=== PATIENT | male | born 1955 | race Caucasian/White ===

== ENCOUNTER → 2018-06-27 | Outpatient (CLI) | payer OTHER | LOC: EMCIMAGING 15:02 | PROVIDERS: ATTEND Orthopaedic Surgery | DX: M16.0 Bilateral primary osteoarthritis of hip (principal); M17.0 Bilateral primary osteoarthritis of knee; M46.96 Unspecified inflammatory spondylopathy, lumbar region; N40.0 Benign prostatic hyperplasia without lower urinary tract symptoms; K57.30 Diverticulosis of large intestine without perforation or abscess without bleeding; M23.41 Loose body in knee, right knee | CPT/HCPCS: 73700-PN ==

== ENCOUNTER 2018-07-04 07:05 | Inpatient (IN) | payer OTHER ==
[~2018-07-04 07:05] MED LIST: ACETAMINOPHEN 325 MG TAB PO ONE; BUPIVACAINE/EPI 0.5% 30 ML SDV ONE; DEXAMETHASONE 4 MG/ML VIAL IVP ONE; FAMOTIDINE 20 MG TAB PO ONE; LR 1,000 ML IV ONE; POVIDONE-IODINE 20 ML in SODIUM CL IRRIG SOLUTION 500 ML IRR ONE; ROPIVACAINE 0.2% 80 MG, EPINEPHrine 0.2 MG, KETOROLAC TROMETHAMINE 30 MG in SYRINGE 0 ML IU ONE; TRANEXAMIC ACID 1,000 MG in NS 100 ML IV ONE; ceFAZolin 2 GM/DEXTROSE 100 ML IV ONE
--- NOTE | 2018-07-04 07:47 | PDHPUP ---
History & Physical Update H&P update statement: This history and physical update is based on an assessment of the patient which was completed after admission or registration (within 24 hours), but prior to the surgery/procedure. H&P update: H&P reviewed & patient examined, no change in patient's condition since H&P completed
[2018-07-04] MEDS ORDERED: MIDAZOLAM 2 MG/2 ML VIAL IVP ONE (07:50)
[2018-07-04] MEDS ORDERED: MIDAZOLAM 2 MG/2 ML VIAL ONE (07:51)
--- NOTE | 2018-07-04 07:52 | PDANEPAE ---
ANE History of Present Illness 62 year old with right hip arthritis ANE Past Medical History - Cardiovascular History Hx Hypertension: Yes Hx Arrhythmias: No Hx Chest Pain: No Hx Coronary Artery / Peripheral Vascular Disease: No Hx CHF / Valvular Disease: No Hx Palpitations: No Cardiovascular History Comment: pcp monitors bp medications - Pulmonary History Hx COPD: No Hx Asthma/Reactive Airway Disease: No Hx Recent Upper Respiratory Infection: No Hx Oxygen in Use at Home: No Hx Sleep Apnea: No Sleep Apnea Screening Result - Last Documented: Positive Pulmonary History Comment: janee triggers - Neurologic History Hx Cerebrovascular Accident: No Hx Seizures: No Hx Dementia: No - Endocrine History Hx Diabetes: No - Renal History Hx Renal Disorders: Yes Renal History Comment: nocturia - Liver History Hx Hepatic Disorders: No - Neurological & Psychiatric Hx Hx Neurological and Psychiatric Disorders: No - Cancer History Hx Cancer: No - Congenital Disorder History Hx Congenital Disorders: No - GI History Hx Gastrointestinal Disorders: No - Other Health History Other Health History: 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 wears glasses - Chronic Pain History Chronic Pain: Yes (right hip pain, bilateral knees) - Surgical History Prior Surgeries: tonsillectomy 1962. knee surgery 1975 and 1982. rhinoplasty 1985. fer 2005. hernia repair 2018 ANE Review of Systems Review of systems is: negative Review of Systems: - Exercise capacity METS (RN): 4 METS ANE Patient History - Allergies Allergies/Adverse Reactions: No Known Allergies Allergy (Verified 07/02/18 15:06) - Home Medications Home Medications: Allopurinol [Allopurinol 300 MG (RX)] 300 mg PO DAILY 06/28/18 [Last Taken 07/04 05:00] Diclofenac Sodium [Voltaren 75 MG (*)] 75 mg PO BID 06/28/18 [Last Taken ] Valacyclovir HCl [Valtrex] 1,000 mg PO DAILY PRN 06/28/18 [Last Taken 07/01/18] amLODIPine BESYLATE/BENAZEPRIL [Lotrel 5/10 mg Cap (*)] 2 each PO DAILY [Last Taken 07/03/18 05:30] - Smoking Hx Smoking Status: Never smoked - Family Anes Hx Family Hx Anesthesia Complications: none ANE Labs/Vital Signs - Vital Signs Height: 175.26 cm Weight: 79.379 kg ANE Physical Exam - Airway Neck exam: FROM Mallampati Score: Class 2 - Pulmonary Pulmonary: no respiratory distress - Cardiovascular Cardiovascular: regular rate and rhythym - ASA Status ASA Status: II ANE Anesthesia Plan Anesthesia Plan: spinal
[2018-07-04] MEDS ORDERED: fentaNYL 100 MCG/2 ML INJ ONE (08:08)
[2018-07-04] MEDS ORDERED: PROPOFOL/EMULSION 500 MG/50 ML BOTTLE IV ONE ×3 (08:08→10:15)
[2018-07-04] MEDS ORDERED: NALOXONE HCL 0.4 MG/ML INJ IVP PRN (10:57)
[2018-07-04] MEDS ORDERED: fentaNYL 100 MCG/2 ML INJ IVP PRN (10:57)
[2018-07-04] MEDS ORDERED: ONDANSETRON 4 MG/2 ML VIAL IVP PRN ×2 (10:57→10:59)
[2018-07-04] MEDS ORDERED: PROMETHAZINE HCL 25 MG/ML INJ IVP PRN ×2 (10:57→10:59)
[2018-07-04] MEDS ORDERED: METOCLOPRAMIDE 10 MG/2 ML VIAL IVP PRN (10:59)
[2018-07-04] MEDS ORDERED: DIPHENOXYLATE/ATROPINE LOMOTIL 1 TAB PO PRN (10:59)
[2018-07-04] MEDS ORDERED: BISACODYL 10 MG SUPP PR PRN (10:59)
[2018-07-04] MEDS ORDERED: PROMETHAZINE HCL 25 MG SUPPR PR PRN (10:59)
[2018-07-04] MEDS ORDERED: POLYETHYLENE GLYCOL 3350 17 GM PKT PO PRN (10:59)
[2018-07-04] MEDS ORDERED: TEMAZEPAM 15 MG CAP PO PRN (10:59)
[2018-07-04] MEDS ORDERED: CYCLOBENZAPRINE 10 MG TAB PO PRN (10:59)
[2018-07-04] MEDS ORDERED: ONDANSETRON DISINTEGRATING 4 MG TAB PO PRN (10:59)
[2018-07-04] MEDS ORDERED: MAGNESIUM HYDROXIDE 30 ML UDCUP PO PRN (10:59)
[2018-07-04] MEDS ORDERED: LACTULOSE 20 GM/30 ML UDCUP PO PRN (10:59)
[2018-07-04] MEDS ORDERED: diphenhydrAMINE 25 MG CAP PO PRN (10:59)
--- NOTE | 2018-07-04 10:59 | POSTANESTH ---
Post Anesthetic Evaluation Cardiovascular Status: Normal, Stable Respiratory Status: Normal, Stable Level of Consciousness/Mental Status: Can Participate in Eval Pain Control: Adequate, Prn Tx Ordered Nausea/Vomiting Control: Adequate, Prn Tx Ordered Complications Possibly Related to Anesthesia: None Noted
--- NOTE | 2018-07-04 11:07 | POSTOPPROG ---
Post Op Note Date of Operation: 07/04/18 Surgeon: Jayce Linares Rice Farmworker: KRISTIN Herron; Sulaiman Carpio PA-C Anesthesiologist: Warm Anesthesia: Spinal Pre-op Diagnosis: Right hip OA Post-op Diagnosis: Right hip OA Indication: Right hip OA Procedure: Right total hip arthroplasty, posterior approach Findings: Right hip OA Inf/Abcess present in the surg proc area at time of surgery?: No Depth: Deep Incisional (Fascial) EBL: 100-500
--- NOTE | 2018-07-04 11:21 | PDMN ---
Medical Necessity [place] [facility] [place] OP: R CLOV[place]
[2018-07-04] MEDS ORDERED: MEPERIDINE 25 MG/0.5 ML AMP ONE (11:42)
[2018-07-04] MEDS ORDERED: MEPERIDINE 25 MG/0.5 ML AMP IVP PRN (11:46)
[2018-07-04] MEDS: LR 1,000 ML IV SCH ×2 (12:41→23:23)
[2018-07-04] MEDS: AMLODIPINE BESYLATE 5/BENAZEPRIL 10MG 1 EACH CAP PO SCH (13:03)
[2018-07-04] MEDS: ALLOPURINOL 300 MG TAB PO SCH (13:03)
[2018-07-04] MEDS: oxyCODONE IR 5 MG TAB PO PRN ×2 (13:35→18:53)
--- NOTE | 2018-07-04 14:07 | SOAPPROG ---
NOÉ Progress Note Assessment/Plan: Assessment: s/p right total hip arthroplasty, posterior approach with Dr. Linares - procedure earlier today Doing well Sciatic nerve intact X-rays look good, prosthetic well aligned Plan: Begin d/c planning - likely going home tomorrow, will have support from his WBAT with assistance, PT/OT, posterior total hip precautions Continue VTE ppx - aspirin 81 mg BID, SCDs, NATALYA hose IS 10 times per hour Analgesics: celebrex, oxycodone as needed, wean off narcotics as tolerated Subjective: Patient states he is doing well, hip is starting to hurt a bit. He denies pain, numbness or tingling radiating down the lower extremities. He is hoping to go home tomorrow and will have the support of his . He denies SOB, CP, fever, chills. Objective: Vital Signs Temp Pulse Resp BP Pulse Ox 36.5 C 65 16 130/79 H 97 07/04/18 13:47 07/04/18 13:47 07/04/18 13:47 07/04/18 13:47 07/04/18 13:47 07/03/18 07/04/18 07/05/18 05:59 05:59 05:59 Intake Total 1000 Output Total 600 Balance 400 Patient is awake, alert and oriented x 3. No acute distress. Easy nonlabored breathing. RLE: Dressing is clean, dry and intact. No erythema, drainage or signs of infection. Thigh and calf compartments are soft and compressible. No calf tenderness. Motor intact at EHL, FHL, tibialis anterior, gastric and soleus. Sensation intact to light touch L3-S1. He notes numbness at the posterolateral hip/thigh. Palpable DP and PT pulses. ICD10 Worksheet Patient Problems: Problems Problem Status Onset Osteoarthritis of right hip Acute
[2018-07-04] MEDS: ACETAMINOPHEN 325 MG TAB PO SCH ×2 (16:28→23:23)
[2018-07-04] MEDS: ceFAZolin 2 GM/DEXTROSE 100 ML IV SCH ×2 (16:29→23:23)
[2018-07-04] MEDS: ASPIRIN 81 MG CHEWABLE TAB PO SCH (20:19)
[2018-07-04] MEDS: FAMOTIDINE 20 MG TAB PO SCH (20:19)
[2018-07-04] MEDS: SENNOSIDES/DOCUSATE SODIUM TAB PO SCH (20:19)
[2018-07-05] MEDS: ACETAMINOPHEN 325 MG TAB PO SCH (04:37)
--- NOTE | 2018-07-05 06:20 | SOAPPROG ---
SOAP Progress Note Assessment/Plan: Assessment: 62-year-old male postop day 1 status post right posterior approach total hip arthroplasty with Eliceo assistance Plan: Weight-bearing as tolerated with assistance, PT/OT Posterior hip precautions DVT prophylaxis: SCDs, Jony Ibarra, aspirin 81 mg twice daily Incentive spirometry 10 times per hour Analgesics: Celebrex oxycodone, wean off narcotics as tolerated Disposition: Home today after physical therapy 07/05/18 06:17 Subjective: No acute events. Pain well controlled. Denies fevers chills nausea vomiting chest pain shortness of breath. Admits to some numbness on the around the incision site and lateral aspect of the thigh. Nothing that radiates past the knee denies weakness. Ambulated yesterday. Hip joint pain felt much improved. Objective: Vital Signs Temp Pulse Resp BP Pulse Ox 36.8 C 73 14 109/66 94 07/05/18 05:21 07/05/18 05:21 07/05/18 05:21 07/05/18 05:21 07/05/18 05:21 Laboratory Results 07/05/18 04:47 07/04/18 07/05/18 07/06/18 05:59 05:59 05:59 Intake Total 4300 Output Total 1575 Balance 2725 Awake alert and oriented x3 No acute distress Easy nonlabored breathing Right hip: Incision clean dry intact no erythema drainage or signs of infection Thigh and calf compartments soft compressible Sensation intact to light touch L4-S1 Motor intact to EHL FHL tibialis anterior gastrocsoleus Palpable DP PT pulses - Pending Discharge Pending Discharge Within 24 Hours: Yes Pending Discharge Date: 07/05/18 Pending Discharge Time: 11:00 ICD10 Worksheet Patient Problems: Problems Problem Status Onset Osteoarthritis of right hip Acute
[2018-07-05 07:44] VITALS: BP 120/77
[2018-07-05] MEDS: ASPIRIN 81 MG CHEWABLE TAB PO SCH (08:11)
[2018-07-05] MEDS: SENNOSIDES/DOCUSATE SODIUM TAB PO SCH (08:11)
[2018-07-05] MEDS: ALLOPURINOL 300 MG TAB PO SCH (08:11)
[2018-07-05] MEDS: FAMOTIDINE 20 MG TAB PO SCH (08:13)
[2018-07-05] MEDS: AMLODIPINE BESYLATE 5/BENAZEPRIL 10MG 1 EACH CAP PO SCH (10:05)
--- NOTE | 2018-07-05 10:25 | PDDCSUM ---
Discharge Summary Discharge Summary: ADMISSION DIAGNOSIS: Right hip osteoarthritis DISCHARGE DIAGNOSIS: Right hip osteoarthritis PRINCIPAL PROCEDURE PERFORMED: Right total hip arthroplasty, posterior approach HPI: Patient is a 62 year old male who has end stage arthritis of his right hip. He has tried and failed conservative measures. Therefore, operative right total hip arthroplasty was recommended. HOSPITAL COURSE: Patient was admitted to the hospital on July 04, 2018 and right total hip arthroplasty, posterior approach, MAKOplasty robotic assistance was performed by Dr. Linares. Patient tolerated the procedure well, was transferred to the PACU and then to the orthopedic floor. Post-operatively he was afebrile with stable vital signs. His neurovascular status, vital signs, hemoglobin and hematocrit were monitored daily. He participated in PT and OT and had good progress with ambulation and stairs. Patient is doing better than expected, therefore he was discharged on July 05, 2018. On the day of discharge his most recent H&H was 12.1/35.7. His right hip wound dressings are clean, dry and intact. Thigh and lower leg compartments are soft and nontender. Negative Homans sign bilaterally. He can actively DF and PF his right foot and great toe against resistance. He notes some numbness about the right hip, otherwise normal neurovascular examination. He denies shortness of breath, chest pain, fever, chills. Patient seems to be a good discharge candidate. He will be discharged home in stable condition and will have the support of his . DISPOSITION: Patient will begin PT within the next 2 weeks, posterior total hip precautions will be followed. He can WBAT as tolerated. Patient was given prescriptions pre-operatively for oxycodone and celebrex, he will wean off narcotics as tolerated. Patient will leave the wound dressing in place and was instructed that he can shower but not submerge the right hip. He has an appointment to follow up with Dr. Linares's office in approximately 2 weeks.
--- NOTE | 2018-07-05 14:01 | ASMTLACE ---
LACE Length of stay for Answers: 2 days current admission Acuity / Level of Answers: Yes Care: Did the patient have an inpatient admission? Comorbidities - select Answers: Opioid dependence all that apply / Chronic pain Other Notes: HTN # of Emergency department Answers: 0 visits in the last 6 months Score: 10 Date Signed: 07/05/2018 02:00 PM Electronically Signed By:KAREEM Baer
--- NOTE | 2018-07-05 14:02 | ASMTCMCOM ---
CM Note CM Note Notes: Pt had planned OA of hip. PT rec outpatient. Pt medically stable for d/c, no CM d/c needs identified. Date Signed: 07/05/2018 02:01 PM Electronically Signed By:KAREEM Baer
--- NOTE | 2018-07-09 14:15 | GOP ---
[f rep st] OPERATIVE REPORT DATE OF OPERATION: 07/04/2018 SURGEON: Jayce iLnares MD PICKER PACKER: Yash Rondon CSA and Lori OLMOS. Assistants were required due to the complexity of the case, patient's condition for positioning , prepping, draping, retraction and closure. ANESTHESIA: Spinal and IV sedation. PREOPERATIVE DIAGNOSIS: Right hip osteoarthritis. POSTOPERATIVE DIAGNOSIS: Right hip osteoarthritis. PROCEDURE PERFORMED: FINDINGS: SPECIMENS: Femoral head x1. ESTIMATED BLOOD LOSS: 300 cc. DESCRIPTION OF PROCEDURE: Patient was seen in the holding area. Operative site was signed. He was taken to the operating room and after smooth induction of spinal anesthesia and IV sedation, he was placed in the lateral decubitus position with the affected hip facing up using a pegboard and axillary roll. The affected hip was prepped and draped in usual sterile fashion. Operative site was confirmed by signature, time-out performed. Allergies reviewed. Antibiotics were administered. Through a percutaneous approach of the iliac crest, 3 pins were placed in the ilium between the inner and outer tables. Pelvic array was attached and registered. Longitudinal incision was made centered over the posterior aspect of the greater trochanter. This was carried through subcutaneous tissue to identify the fascia nic which was incised in line with the incision. The gluteus eddie was bluntly split. The trochanteric bursa was taken down using Bovie. Short external rotators were put on stretch and short external rotators and trapezoidal capsulotomy were taken in layers from their insertion on the femur and tagged with #2 FiberWire sutures. The quadratus femoris was partially released. A Steinmann pin was placed in the superior aspect of the acetabulum and 1/8 inch drill bit was placed in the greater trochanter. [place] length was recorded for reference. Hip was then dislocated. Osteotomy was then performed based on pre-templated calculations and imaging. The femoral head was excised with a large clamp. The acetabulum was then exposed in standard fashion. Labrum was sharply excised. Ligamentum, teres an acetabular fossa were excised using the Bovie. Pelvic checkpoint was attached to the acetabulum and registered using the Pixsta robotic arms. Sequential reaming was performed based on templated positioning. The appropriate sized implant was then impacted into place with robotic arm to guide virgin inclination and seen to have adequate secure fit. 2 cancellous bone screws were added due to the amount of bone loss superiorly. The cup was then irrigated, dried and the liner was locked into place. The femur was then exposed in standard fashion. Excess soft tissue was removed from the piriformis fossa using Bovie. Excess neck was removed using the box osteotome. Sequential broaching was performed to the desired size. Broach had good fit and fill. The hip was then taken through range of motion, seemed to be stable with flexion, internal rotation, adduction, as well as extension and external rotation. Combined version and length were found to be excellent based on visual inspection in comparison made to the pre-recorded quileute leg length. Hip was then dislocated. Trial components were removed from the femur and stem. Final stem implant was impacted in place. The trunnion was cleaned and dried, and the head was impacted down on the trunnion. The wound was copiously irrigated with sterile solution and using the pulse lavage, including the cup, the hip was then relocated, once again taken through range of motion and seen to be stable all the motions. The pelvic array pins and checkpoints were removed. The wound was copiously irrigated with sterile solution. Dilute Betadine solution was then irrigated in the wound, allowed to soak for 3 minutes before being irrigated out. Joint cocktail was injected in the soft tissue capsule and external and short external rotators were repaired through 2 drill holes in the greater trochanter and drain was placed, exiting distally from beneath the fascia nic. The wound was then closed with 0 PDS Quill suture in the fascia nic and 0/2-0 PDS Quill suture in the deep subcutaneous fat, 3-0 Versalok in the dermis. Dermabond and sterile dressings were applied. The hip was placed in a hip abduction pillow. The patient safely awakened, and taken to recovery room in stable condition. All critical portions of the procedure performed by myself, Dr. Linares. This operative note was created by myself, and I was immediately available for emergency cross-coverage at all times. PROCEDURE PERFORMED: Right total hip arthroplasty, posterior approach with MAKOplasty robotic guidance. This case was complicated due to the patient's severe deformity of his right hip, as well as acetabular bone loss. Extra staff , surgical instruments, time were required for the surgical procedure. SURGEON: Jayce Linares MD. DRAINS: None. COMPLICATIONS: None. IMPLANTS: Includes [place] Trident 2 tritanium, multi-hole acetabular shell, size 54 with a 0-degree, 36 mm polyethylene liner, as well as 6.5 mm low- profile hex screws, 130 mm, 120 mm, [place] Accolade 2 size 6 stem, 127 degree offset with a 36 mm +7.5 ceramic V40 head. INDICATIONS FOR PROCEDURE: Patient have severe hip osteoarthritis resulting in significant bone loss of the superior acetabulum and leg-length discrepancy of approximately 3 cm. After discussion of all available approaches, the patient elected to proceed with Eliceo Blankenship robotic-assisted hip replacement through a posterior approach. The patient verbalized understanding of the risks and benefits of the procedure and signed informed consent prior to the procedure. /[id number]/MODL MTDD
== END 2018-07-05 10:57 | disposition home or self-care (01) | DRG 470 ==
LOC: F3E 07:05 → F3N 12:29
PROVIDERS: ADMIT Orthopaedic Surgery; ATTEND Orthopaedic Surgery
DX: M16.11 Unilateral primary osteoarthritis, right hip (principal); I10 Essential (primary) hypertension; M10.9 Gout, unspecified; M06.9 Rheumatoid arthritis, unspecified
CPT/HCPCS: 97161-GP; 97165-GO; 97535-GO; C1713; J0171; J0690; J1100; J1885; J2175; J2250; J2704; J2795; J3010